=== PATIENT | female | born 1955 | race Caucasian/White ===

== ENCOUNTER 2018-12-31 17:56 | Inpatient (IN) ==
[2018-12-31] MEDS ORDERED: Ipratropium/Albuterol Neb 3 ML IH ONE (18:07)
[2018-12-31] MEDS ORDERED: methylPREDNISolone 125 MG/2 ML VIAL IVP ONE (18:07)
[2018-12-31 18:23] LABS: Basophils % 0.3 %; Eosinophils % 0.2 %; Hemoglobin 21.9 g/dL (11.5-15.4); Immature Granulocytes % 0.5 % (0-4); Lymphocytes # 2.3 K/mcL (0.6-4.6); Lymphocytes % 19.7 %; Mean Corpuscular HGB Conc 33.1 g/dL (31.6-35.5); Mean Corpuscular Hemoglobin 32.4 pg (28.0-33.3); Mean Corpuscular Volume 98.1 fL (83.0-100.0); Mean Platelet Volume 10.7 fL (9.4-12.4); Monocytes # 0.9 K/mcL (0.0-1.3); Monocytes % 7.6 %; Neutrophils # 8.5 K/mcL (1.6-8.9); Platelet Count 250 K/mcL (140-400); Red Blood Count 6.75 M/mcL (3.82-4.97); Red Cell Distribution Width 17.7 % (11.5-14.5); Segmented Neutrophils % 71.7 %; White Blood Count 11.9 K/mcL (4.3-11.1)
[2018-12-31 18:23] LABS: ABG Base Excess 5 mEq/L (-2 to 3); ABG HCO3 34 mEq/L (21-27); ABG Oxygen Saturation 97 % (95-98); ABG PCO2 58 mmHg (35-45); ABG PH 7.38 pH Units (7.32-7.45); ABG PO2 96 mmHg (85-104); ABG TCO2 36 mEq/L (20-26)
[2018-12-31 18:24] LABS: Hematocrit 66.2 % (35.3-44.9)
[2018-12-31 18:47] LABS: Alanine Aminotransferase 20 Units/L (7-52); Albumin 4.3 g/dL (3.5-5.7); Albumin/Globulin Ratio 1.6 (1.1-2.2); Alkaline Phosphatase 65 Units/L (34-104); Aspartate Amino Transferase 25 Units/L (13-39); BUN/Creatinine Ratio 22 (6-26); Bilirubin,Total 2.5 mg/dL (0.3-1.0); Blood Urea Nitrogen 13 mg/dL (8-23); Calcium 9.5 mg/dL (8.6-10.3); Carbon Dioxide 31 mEq/L (23-29); Chloride 94 mEq/L (98-107); Globulin 2.7 g/dL (2.4-3.5); Glucose 155 mg/dL (70-105); Osmolality,Calculated 287 (280-300); Potassium 4.9 mEq/L (3.5-5.1); Sodium 137 mEq/L (136-145); Troponin I 0.05 ng/mL (< 0.04); eGFR For African Americans > 60 (> 60); eGFR For Non-African Americans > 60 (> 60)
[2018-12-31] MEDS ORDERED: Aspirin 81 MG TAB.CHEW PO STA (18:59)
[2018-12-31 19:08] LABS: Magnesium 1.9 mg/dL (1.6-2.6)
[2018-12-31 19:29] LABS: Prothrombin Time 11.9 Seconds (9.4-12.1)
[2018-12-31] MEDS ORDERED: Isovue-370 500 ML BOTTLE IVP ONE (22:14)
[2018-12-31] MEDS ORDERED: Naloxone 0.4 MG/ML INJ IVP PRN (22:33)
[2018-12-31] MEDS ORDERED: Furosemide 40 MG in 0.9 % Sodium Chloride 50 ML IV SCH (22:40)
[2018-12-31] MEDS: Ipratropium/Albuterol Neb 3 ML IH SCH (22:57)
[2018-12-31] MEDS: Budesonide/Formoterol 160/4.5 1 PUFF INH IH SCH (22:57)
[2019-01-01 01:02] LABS: Basophils % 0.1 %; Immature Granulocytes % 0.7 % (0-4); Immature Platelets 7.7 % (1.1-6.1); Lymphocytes # 0.4 K/mcL (0.6-4.6); Lymphocytes % 4.6 %; Mean Corpuscular HGB Conc 32.1 g/dL (31.6-35.5); Mean Corpuscular Hemoglobin 32.2 pg (28.0-33.3); Mean Corpuscular Volume 100.3 fL (83.0-100.0); Mean Platelet Volume 11.2 fL (9.4-12.4); Monocytes % 0.3 %; Neutrophils # 7.2 K/mcL (1.6-8.9); Platelet Count 218 K/mcL (140-400); Red Blood Count 6.21 M/mcL (3.82-4.97); Red Cell Distribution Width 17.6 % (11.5-14.5); Segmented Neutrophils % 94.3 %; White Blood Count 7.6 K/mcL (4.3-11.1)
[2019-01-01 01:07] LABS: Hematocrit 62.3 % (35.3-44.9)
[2019-01-01 01:17] LABS: Bilirubin,Urine Negative (Negative); Blood,Urine Negative (Negative); Clarity,Urine Clear (Clear); Color,Urine Yellow (Yellow); Glucose,Urine (UA) Normal (Normal); Ketones,Urine Negative (Negative); Leukocyte Esterase,Urine Negative (Negative); Nitrite,Urine Negative (Negative); PH,Urine 6.5 pH Units (5.0-8.0); Protein,Urine Negative (Neg-Trace); Specific Gravity,Urine 1.026 (1.010-1.025); Urobilinogen,Urine Normal (Normal)
[2019-01-01 01:22] LABS: Alanine Aminotransferase 20 Units/L (7-52); Albumin 3.9 g/dL (3.5-5.7); Albumin/Globulin Ratio 1.6 (1.1-2.2); Alkaline Phosphatase 57 Units/L (34-104); Aspartate Amino Transferase 23 Units/L (13-39); BUN/Creatinine Ratio 22 (6-26); Bilirubin,Total 2.5 mg/dL (0.3-1.0); Blood Urea Nitrogen 17 mg/dL (8-23); Calcium 9.1 mg/dL (8.6-10.3); Carbon Dioxide 33 mEq/L (23-29); Chloride 94 mEq/L (98-107); Chol/HDL Ratio 3.7 (0-4.9); Cholesterol 242 mg/dL (< 200); Globulin 2.5 g/dL (2.4-3.5); Glucose 258 mg/dL (70-105); HDL Cholesterol 65 mg/dL (40-59); LDL Cholesterol,Calculated 160 mg/dL (0-99); Osmolality,Calculated 294 (280-300); Phosphorous 4.4 mg/dL (2.7-4.5); Potassium 4.9 mEq/L (3.5-5.1); Sodium 137 mEq/L (136-145); Total Protein 6.4 g/dL (6.4-8.9); Triglycerides 85 mg/dL (< 150); eGFR For African Americans > 60 (> 60); eGFR For Non-African Americans > 60 (> 60)
[2019-01-01 01:35] LABS: Thyroid Stimulating Hormone 0.382 mcIU/mL (0.340-5.600)
[2019-01-01] MEDS: Ipratropium/Albuterol Neb 3 ML IH SCH ×4 (03:44→21:35)
[2019-01-01 05:10] LABS: INR 1.1; Prothrombin Time 12.2 Seconds (9.4-12.1)
[2019-01-01] MEDS: *HR* Heparin 5,000 UNIT/ML VIAL SQ SCH ×3 (06:15→21:49)
[2019-01-01] MEDS: predniSONE 20 MG TABLET PO SCH (08:25)
[2019-01-01] MEDS: Furosemide 40 MG/4 ML VIAL IVP SCH ×2 (08:26→17:38)
[2019-01-01 09:53] LABS: Estimated Average Glucose 169 mg/dl
[2019-01-01] MEDS: Budesonide/Formoterol 160/4.5 1 PUFF INH IH SCH ×2 (10:47→21:34)
[2019-01-02] MEDS: Ipratropium/Albuterol Neb 3 ML IH SCH ×4 (03:16→21:44)
[2019-01-02] MEDS: *HR* Heparin 5,000 UNIT/ML VIAL SQ SCH ×2 (08:03→12:20)
[2019-01-02] MEDS: predniSONE 20 MG TABLET PO SCH (08:41)
[2019-01-02] MEDS: Furosemide 40 MG/4 ML VIAL IVP SCH ×2 (08:42→16:55)
[2019-01-02] MEDS: Budesonide/Formoterol 160/4.5 1 PUFF INH IH SCH ×2 (10:51→21:44)
[2019-01-03] MEDS: Ipratropium/Albuterol Neb 3 ML IH SCH ×4 (04:11→23:49)
[2019-01-03] MEDS: predniSONE 20 MG TABLET PO SCH (09:40)
[2019-01-03] MEDS: Furosemide 40 MG/4 ML VIAL IVP SCH ×2 (09:40→18:00)
[2019-01-03] MEDS: Budesonide/Formoterol 160/4.5 1 PUFF INH IH SCH ×2 (10:35→23:49)
[2019-01-03] MEDS: *HR* Heparin 5,000 UNIT/ML VIAL SQ SCH ×3 (16:45→21:15)
[2019-01-04] MEDS: Ipratropium/Albuterol Neb 3 ML IH SCH ×2 (05:16→10:47)
[2019-01-04] MEDS: *HR* Heparin 5,000 UNIT/ML VIAL SQ SCH (06:24)
[2019-01-04 08:01] VITALS: BP 123/77
[2019-01-04] MEDS: Furosemide 40 MG/4 ML VIAL IVP SCH (09:02)
[2019-01-04] MEDS: predniSONE 20 MG TABLET PO SCH (09:02)
[2019-01-04] MEDS ORDERED: FLU Vac QV 19-20 (6Month+)/PF 0.5 ML SYRINGE IM ONE (10:39)
[2019-01-04] MEDS: Budesonide/Formoterol 160/4.5 1 PUFF INH IH SCH (10:47)
== END 2019-01-04 12:26 | disposition home or self-care (01) | DRG 314 ==
LOC: 2ANU 17:56 → EMEROOARM 17:56 → SUATTDRO 20:24 → 2ANU 20:57
PROVIDERS: ADMIT Family Medicine; ATTEND Internal Medicine